=== PATIENT | female | born 1955 | race Caucasian/White ===

== ENCOUNTER 2018-08-15 12:28 | Emergency (ER) | payer OTHER ==
[~2018-08-15] VITALS: Ht 160 cm; Wt 76.2 kg
[2018-08-15 12:41] VITALS: Ht 160 cm; Wt 76.2 kg
[2018-08-15 14:48] VITALS: BP 142/92
== END 2018-08-15 14:48 | disposition home or self-care (01) ==
LOC: ED 12:28
DX: S43.401A Unspecified sprain of right shoulder joint, initial encounter (principal); I10 Essential (primary) hypertension; I44.7 Left bundle-branch block, unspecified; V43.52XA Car driver injured in collision with other type car in traffic accident, initial encounter; Y93.I9 Activity, other involving external motion; Y92.413 State road as the place of occurrence of the external cause; Y99.8 Other external cause status